=== PATIENT | male | born 2000 | race Caucasian/White ===

== ENCOUNTER → 2021-12-24 | Outpatient (CLI) | payer BC ==
--- NOTE | 2021-12-25 12:02 | XR ---
EXAMINATION TYPE: XR lumbar spine 3V, XR Hip Complete 2 views LT DATE OF EXAM: 12/24/2021 Comparison: None Clinical History: 21-year-old male [id number] LBP, LT HIP PAIN Findings: Lumbar spine: 5 lumbar type vertebral bodies. Possible L5 hemisacralization. Mild degenerative disc space narrowing L5-S1. Slight reversal of the normal lumbar lordosis. Vertebral body heights and disc interspaces ar e otherwise maintained. Left hip: Small superior femoral head neck junction osseous excrescence. Tiny 3 mm os acetabulum versus degener ative labral ossifications. No acute fracture, subluxation, dislocation. Impression: 1. Lumbar spine: Left L5 hemisacralization. This may contribute to accelerated degenerative disc dise ase above at L4-L5. Disc height appears maintained at this time. No vertebral compression collapse or malalignment. 2. Left hip: Correlate for CAM-type femoral acetabular impingement syndrome on the left. Orthopedic r eferral for further evaluation. There is either a tiny 3 mm os acetabulum versus degenerative labral ossifications.
== END | disposition home or self-care (01) ==
LOC: RADXRYALE 16:25
PROVIDERS: ATTEND Physician Assistant Medical
DX: M54.50 Low back pain, unspecified (principal); M25.552 Pain in left hip
CPT/HCPCS: 72100; 73502